=== PATIENT | female | born 1935 | race Caucasian/White ===

== ENCOUNTER 2019-12-03 13:07 | Inpatient (IN) | payer MEDICARE, BC ==
[2019-12-03 13:18] LABS: Glucose,Whole Blood 424 mg/dL (75-99)
[2019-12-03] MEDS ORDERED: INSULIN ASPART (NovoLOG) 100 UNIT/ML VIAL SQ ONE (14:03)
[2019-12-03] MEDS ORDERED: SODIUM CHLORIDE 0.9% 1,000 ML IV ONE ×2 (14:06→15:20)
[2019-12-03 14:28] LABS: Glucose,Whole Blood 417 mg/dL (75-99)
--- NOTE | 2019-12-03 14:37 | ED ---
General Adult HPI - General Chief complaint: Recheck/Abnormal Lab/Rx Stated complaint: high blood sugar Time Seen by Provider: 12/03/19 13:10 Source: patient, RN notes reviewed, old records reviewed Mode of arrival: ambulatory Limitations: no limitations - History of Present Illness Initial comments: This is an 84-year-old female who presents to the emergency department complaining of being fatigued and tired for the last few days she was just recently diagnosed with urinary tract infection but came to the hospital today because his sugars been high over the last 3 days. That she does not test her sugars. Patient states she had some lower abdominal pain when she was diagnosed with the urinary tract infection but she feels much better after she's been on the antibiotic. - Related Data Home Medications Medication Instructions Recorded Confirmed Aspirin 81 mg PO HS 12/17/13 04/15/17 Atorvastatin [Lipitor] 20 mg PO HS 12/17/13 04/15/17 Benazepril HCl [Lotensin] 20 mg PO HS 12/17/13 04/15/17 Pantoprazole Sodium [Protonix] 40 mg PO HS 12/17/13 04/15/17 Pioglitazone HCl [Actos] 30 mg PO HS 12/17/13 04/15/17 Verapamil HCl [Calan] 120 mg PO HS 12/17/13 04/15/17 sitaGLIPtin PHOS/metFORMIN HCL 1 tab PO HS 12/17/13 04/15/17 [Janumet Xr 100-1,000 mg Tablet] Ergocalciferol (Vitamin D2) 50,000 unit PO Q7D 04/15/17 04/15/17 [Vitamin D2] Glimepiride [Amaryl] 2 mg PO BID 04/15/17 04/15/17 Allergies Allergy/AdvReac Type Severity Reaction Status Date / Time No Known Allergies Allergy Verified 12/03/19 13:08 Review of Systems ROS Statement: Those systems with pertinent positive or pertinent negative responses have been documented in the HPI. ROS Other: All systems not noted in ROS Statement are negative. Past Medical History Past Medical History: Diabetes Mellitus, GERD/Reflux, Hyperlipidemia, Hypertension, Osteoarthritis (OA) Additional Past Medical History / Comment(s): HIATAL HERNIA. History of Any Multi-Drug Resistant Organisms: None Reported Past Surgical History: Cholecystectomy, Hysterectomy, Orthopedic Surgery Additional Past Surgical History / Comment(s): YENIFER CATARACTS EXTRACTED; ARTHROSCOPY RT KNEE X2 Past Anesthesia/Blood Transfusion Reactions: No Reported Reaction Past Psychological History: No Psychological Hx Reported Smoking Status: Never smoker Past Alcohol Use History: None Reported Past Drug Use History: None Reported - Past Family History Sister(s) Family Medical History: Cancer General Exam - General Exam Comments Initial Comments: GENERAL: Patient is well-developed and well-nourished. Patient is nontoxic and well- hydrated and is in mild distress. ENT: Neck is soft and supple. No significant lymphadenopathy is noted. Oropharynx is clear. Moist mucous membranes. Neck has full range of motion without eliciting any pain. EYES: The sclera were anicteric and conjunctiva were pink and moist. Extraocular movements were intact and pupils were equal round and reactive to light. Eyelids were unremarkable. PULMONARY: Unlabored respirations. Good breath sounds bilaterally. No audible rales rhonchi or wheezing was noted. CARDIOVASCULAR: There is a regular rate and rhythm without any murmurs gallops or rubs. ABDOMEN: Soft and nontender with normal bowel sounds. SKIN: Skin is clear with no lesions or rashes and otherwise unremarkable. NEUROLOGIC: Patient is alert and oriented x3. Cranial nerves II through XII are grossly intact. Motor and sensory are also intact. Normal speech, volume and content. Symmetrical smile. MUSCULOSKELETAL: Normal extremities with adequate strength and full range of motion. No lower extremity swelling or edema. No calf tenderness. LYMPHATICS: No significant lymphadenopathy is noted PSYCHIATRIC: Normal psychiatric evaluation. Limitations: no limitations Course Vital Signs 12/03/19 13:08 Temperature 97.9 F Pulse Rate 104 H Respiratory 20 Rate Blood Pressure 106/69 O2 Sat by Pulse 98 Oximetry Medical Decision Making - Medical Decision Making EKG shows junctional rhythm at 94 bpm QRS is 84 QT interval 374 QTC is 467 Patient had a urinary tract infection I treated her with Rocephin. I started the patient on a NovoLog sliding scale and I also gave 8 units of NovoLog in the emergency department. Patient has renal insufficiency so I hydrated the patient up as well I spoke with Dr. Rebolledo. I wrote admitting orders. - Lab Data Result diagrams: 12/03/19 14:21 12/03/19 14:21 Lab Results 12/03/19 12/03/19 12/03/19 Range/Units 13:16 14:21 14:21 WBC 14.6 H (3.8-10.6) k/uL RBC 4.07 (3.80-5.40) m/uL Hgb 11.0 L (11.4-16.0) gm/dL Hct 35.7 (34.0-46.0) % MCV 87.9 (80.0-100.0) fL MCH 27.0 (25.0-35.0) pg MCHC 30.7 L (31.0-37.0) g/dL RDW 14.8 (11.5-15.5) % Plt Count 371 (150-450) k/uL Neutrophils % 81 % Lymphocytes % 10 % Monocytes % 5 % Eosinophils % 3 % Basophils % 0 % Neutrophils # 11.8 H (1.3-7.7) k/uL Lymphocytes # 1.4 (1.0-4.8) k/uL Monocytes # 0.7 (0-1.0) k/uL Eosinophils # 0.5 (0-0.7) k/uL Basophils # 0.0 (0-0.2) k/uL Hypochromasia Slight Sodium (137-145) mmol/L Potassium (3.5-5.1) mmol/L Chloride (98-107) mmol/L Carbon Dioxide (22-30) mmol/L Anion Gap mmol/L BUN (7-17) mg/dL Creatinine (0.52-1.04) mg/dL Est GFR (CKD-EPI)AfAm (>60 ml/min/1.73 sqM) Est GFR (CKD-EPI)NonAf (>60 ml/min/1.73 sqM) Glucose (74-99) mg/dL POC Glucose (mg/dL) 424 H (75-99) mg/dL POC Glu Top Collar Maker ID Minerva Friend Calcium (8.4-10.2) mg/dL Total Bilirubin (0.2-1.3) mg/dL AST (14-36) U/L ALT (4-34) U/L Alkaline Phosphatase (38-126) U/L Total Protein (6.3-8.2) g/dL Albumin (3.5-5.0) g/dL Urine Color Brown Urine Appearance Cloudy H (Clear) Urine pH 5.5 (5.0-8.0) Ur Specific [place] 1.015 (1.001-1.035) Urine Protein 1+ H (Negative) Urine Glucose (UA) 4+ H (Negative) Urine Ketones Negative (Negative) Urine Blood Moderate H (Negative) Urine Nitrite Positive H (Negative) Urine Bilirubin Negative (Negative) Urine Urobilinogen 2.0 (<2.0) mg/dL Ur Leukocyte Esterase Large H (Negative) Urine RBC 73 H (0-5) /hpf Urine WBC >182 H (0-5) /hpf Urine WBC Clumps Many H (None) /hpf Ur Squamous Epith Cells 2 (0-4) /hpf Urine Bacteria Few H (None) /hpf Hyaline Casts 24 H (0-2) /lpf Urine Mucus Rare H (None) /hpf Acetone, Qual (Negative) 12/03/19 12/03/19 Range/Units 14:21 14:26 WBC (3.8-10.6) k/uL RBC (3.80-5.40) m/uL Hgb (11.4-16.0) gm/dL Hct (34.0-46.0) % MCV (80.0-100.0) fL MCH (25.0-35.0) pg MCHC (31.0-37.0) g/dL RDW (11.5-15.5) % Plt Count (150-450) k/uL Neutrophils % % Lymphocytes % % Monocytes % % Eosinophils % % Basophils % % Neutrophils # (1.3-7.7) k/uL Lymphocytes # (1.0-4.8) k/uL Monocytes # (0-1.0) k/uL Eosinophils # (0-0.7) k/uL Basophils # (0-0.2) k/uL Hypochromasia Sodium 129 L (137-145) mmol/L Potassium 4.6 (3.5-5.1) mmol/L Chloride 97 L (98-107) mmol/L Carbon Dioxide 16 L (22-30) mmol/L Anion Gap 16 mmol/L BUN 35 H (7-17) mg/dL Creatinine 1.72 H (0.52-1.04) mg/dL Est GFR (CKD-EPI)AfAm 32 (>60 ml/min/1.73 sqM) Est GFR (CKD-EPI)NonAf 27 (>60 ml/min/1.73 sqM) Glucose 388 H (74-99) mg/dL POC Glucose (mg/dL) 417 H (75-99) mg/dL POC Glu Top Collar Maker ID Minerva Friend Calcium 9.1 (8.4-10.2) mg/dL Total Bilirubin 0.6 (0.2-1.3) mg/dL AST 20 (14-36) U/L ALT 10 (4-34) U/L Alkaline Phosphatase 106 (38-126) U/L Total Protein 7.3 (6.3-8.2) g/dL Albumin 3.9 (3.5-5.0) g/dL Urine Color Urine Appearance (Clear) Urine pH (5.0-8.0) Ur Specific [place] (1.001-1.035) Urine Protein (Negative) Urine Glucose (UA) (Negative) Urine Ketones (Negative) Urine Blood (Negative) Urine Nitrite (Negative) Urine Bilirubin (Negative) Urine Urobilinogen (<2.0) mg/dL Ur Leukocyte Esterase (Negative) Urine RBC (0-5) /hpf Urine WBC (0-5) /hpf Urine WBC Clumps (None) /hpf Ur Squamous Epith Cells (0-4) /hpf Urine Bacteria (None) /hpf Hyaline Casts (0-2) /lpf Urine Mucus (None) /hpf Acetone, Qual Negative (Negative) Disposition Clinical Impression: Urinary tract infection, Renal insufficiency, Failure of outpatient treatment Disposition: ADMITTED IP TO THIS HOSP Referrals: Glory Rebolledo DO [Primary Care Provider] - 1-2 days Time of Disposition: 15:12
[2019-12-03 14:44] LABS: Basophils % (A) 0 %; Eosinophils # (A) 0.5 k/uL (0-0.7); Eosinophils % (A) 3 %; HCT 35.7 % (34.0-46.0); Hypochromasia Slight; Lymphocytes # (A) 1.4 k/uL (1.0-4.8); Lymphocytes % (A) 10 %; MCHC 30.7 g/dL (31.0-37.0); MCV 87.9 fL (80.0-100.0); Mean Platelet Volume 7.4; Monocytes # (A) 0.7 k/uL (0-1.0); Monocytes % (A) 5 %; Neutrophils # (A) 11.8 k/uL (1.3-7.7); Neutrophils % (A) 81 %; Platelet Count 371 k/uL (150-450); RBC 4.07 m/uL (3.80-5.40); RDW 14.8 % (11.5-15.5); WBC 14.6 k/uL (3.8-10.6)
[2019-12-03 14:53] LABS: Appearance,Urine Cloudy (Clear); Bacteria,Urine Few /hpf; Bilirubin,Urine Negative (Negative); Blood,Urine Moderate (Negative); Color,Urine Brown; Glucose,Urine (UA) 4+ (Negative); Hyaline Casts,Urine 24 /lpf (0-2); Ketones,Urine Negative (Negative); Leukocyte Esterase,Urine Large (Negative); Mucus,Urine Rare /hpf; Nitrite,Urine Positive (Negative); PH, Urine 5.5 (5.0-8.0); Protein,Urine 1+ (Negative); RBC,Urine 73 /hpf (0-5); Specific Gravity,Urine 1.015 (1.001-1.035); Squamous Epithelial Cell,Urine 2 /hpf (0-4); WBC,Urine >182 /hpf (0-5)
[2019-12-03 14:57] LABS: ALT 10 U/L (4-34); AST 20 U/L (14-36); African American GFR (CKD) 32 (>60 ml/min/1.73 sqM); Albumin 3.9 g/dL (3.5-5.0); Alkaline Phosphatase 106 U/L (38-126); Anion Gap 16 mmol/L; Blood Urea Nitrogen 35 mg/dL (7-17); Calcium 9.1 mg/dL (8.4-10.2); Carbon Dioxide 16 mmol/L (22-30); Chloride 97 mmol/L (98-107); Glucose 388 mg/dL (74-99); Non-African American GFR(CKD) 27 (>60 ml/min/1.73 sqM); Potassium 4.6 mmol/L (3.5-5.1); Sodium 129 mmol/L (137-145); Total Bilirubin 0.6 mg/dL (0.2-1.3); Total Protein 7.3 g/dL (6.3-8.2)
[2019-12-03] MEDS ORDERED: cefTRIAXone IN SWFI 1,000 MG/10 ML SYRINGE IVP STA ×2 (15:08→15:12)
[2019-12-03 15:58] LABS: Glucose,Whole Blood 288 mg/dL (75-99)
[2019-12-03] MEDS ORDERED: LORATADINE 10 MG TAB PO PRN (17:20)
[2019-12-03 17:28] LABS: Glucose,Whole Blood 237 mg/dL (75-99)
[2019-12-03] MEDS: INSULIN ASPART (NovoLOG) 100 UNIT/ML VIAL SQ SCH ×2 (17:30→20:39)
[2019-12-03 20:34] LABS: Glucose,Whole Blood 266 mg/dL (75-99)
[2019-12-03] MEDS: ATORVASTATIN 20 MG TAB PO SCH (20:39)
[2019-12-03] MEDS: AMITRIPTYLINE HCL 10 MG TAB PO SCH (20:39)
[2019-12-04 06:32] LABS: Glucose,Whole Blood 125 mg/dL (75-99)
[2019-12-04] MEDS: INSULIN ASPART (NovoLOG) 100 UNIT/ML VIAL SQ SCH ×4 (06:33→20:52)
[2019-12-04] MEDS: LISINOPRIL 20 MG TAB PO SCH (08:46)
[2019-12-04] MEDS: ESCITALOPRAM 5 MG TAB PO SCH (08:46)
[2019-12-04] MEDS: VERAPAMIL SR 120 MG TABLET.ER PO SCH (08:47)
[2019-12-04] MEDS: ASPIRIN 81 MG PO SCH (08:52)
[2019-12-04] MEDS ORDERED: VERAPAMIL SR 120 MG TABLET.ER PO SCH (11:45)
[2019-12-04 11:57] LABS: Hemoglobin A1C 11.6 % (4.0-6.0)
[2019-12-04 12:08] LABS: Glucose,Whole Blood 293 mg/dL (75-99)
[2019-12-04 13:45] VITALS: BMI 28.9
[2019-12-04 17:03] LABS: Glucose,Whole Blood 269 mg/dL (75-99)
[2019-12-04 20:45] LABS: Glucose,Whole Blood 216 mg/dL (75-99)
[2019-12-04] MEDS: AMITRIPTYLINE HCL 10 MG TAB PO SCH (20:51)
[2019-12-04] MEDS: ATORVASTATIN 20 MG TAB PO SCH (20:51)
[2019-12-05 00:46] VITALS: BP 163/80
[2019-12-05 06:39] LABS: Glucose,Whole Blood 171 mg/dL (75-99)
[2019-12-05] MEDS: INSULIN ASPART (NovoLOG) 100 UNIT/ML VIAL SQ SCH (06:46)
[2019-12-05] MEDS ORDERED: INSULIN DETEMIR (LEVEMIR) 100 UNIT/ML SYR SQ SCH (08:40)
--- NOTE | 2019-12-05 08:43 | P.HPIM ---
History of Present Illness H&P Date: 12/04/19 Chief Complaint: UTI Mckayla Rogers is an 84 yo F with PMH of HTN, T2DM, depression who presented to the ED complaining of worsening UTI symptoms over the past few days. She states she initially went to her PCP office and was started on cipro. She states her symptoms persisted including urinary frequency, dysuria and lower abdominal cramping despite the antibiotics. She has been checking her sugar at home and notes it has been creeping up to the 300s so she came to the ED. On presentation, vitals stable, WBC 14k, Cr 1.7, glucose 417 and A1c 11.6. UA with positive LE and nitrite. Review of Systems All systems: negative Constitutional: Reports malaise, Denies chills, Denies fever Eyes: denies blurred vision, denies pain Ears, nose, mouth and throat: Denies headache, Denies sore throat Cardiovascular: Denies chest pain, Denies shortness of breath Respiratory: Denies cough Gastrointestinal: Denies abdominal pain, Denies diarrhea, Denies nausea, Denies vomiting Genitourinary: Reports dysuria, Reports urgency, Denies hematuria Musculoskeletal: Denies myalgias Integumentary: Denies pruritus, Denies rash Neurological: Denies numbness, Denies weakness Psychiatric: Denies anxiety, Denies depression Endocrine: Denies fatigue, Denies weight change Past Medical History Past Medical History: Diabetes Mellitus, GERD/Reflux, Hyperlipidemia, Hypertension, Osteoarthritis (OA) Additional Past Medical History / Comment(s): HIATAL HERNIA. History of Any Multi-Drug Resistant Organisms: None Reported Past Surgical History: Cholecystectomy, Hysterectomy, Orthopedic Surgery Additional Past Surgical History / Comment(s): YENIFER CATARACTS EXTRACTED; ARTHROSCOPY RT KNEE X1 Past Anesthesia/Blood Transfusion Reactions: No Reported Reaction Past Psychological History: No Psychological Hx Reported Smoking Status: Never smoker Past Alcohol Use History: None Reported Past Drug Use History: None Reported - Past Family History Sister(s) Family Medical History: Cancer Medications and Allergies Home Medications Medication Instructions Recorded Confirmed Type Aspirin 81 mg PO DAILY 12/17/13 12/03/19 History Atorvastatin [Lipitor] 20 mg PO DAILY 12/17/13 12/03/19 History Benazepril HCl [Lotensin] 20 mg PO DAILY 12/17/13 12/03/19 History Pioglitazone HCl [Actos] 30 mg PO DAILY 12/17/13 12/03/19 History Ergocalciferol (Vitamin D2) 50,000 unit PO MO 04/15/17 12/03/19 History [Vitamin D2] Glimepiride [Amaryl] 2 mg PO BID 04/15/17 12/03/19 History Amitriptyline HCl [Elavil] 10 mg PO HS 12/03/19 12/03/19 History Cetirizine HCl [Zyrtec] 10 mg PO DAILY PRN 12/03/19 12/03/19 History Ciprofloxacin HCl [Cipro] 250 mg PO BID 12/03/19 12/03/19 History Dulaglutide [Trulicity] 0.75 mg INJ SA 12/03/19 12/03/19 History Escitalopram [Lexapro] 5 mg PO DAILY 12/03/19 12/03/19 History Multivitamin [Multivitamins Adult 1 tab PO DAILY 12/03/19 12/03/19 History Gummies] Ondansetron HCl [Zofran] 8 mg PO Q8H PRN 12/03/19 12/03/19 History Verapamil HCl [Verapamil ER] 120 mg PO DAILY 12/03/19 12/03/19 History metFORMIN HCL [metFORMIN HCL ER] 750 mg PO BID 12/03/19 12/03/19 History rOPINIRole HCL [Requip] 0.5 mg PO HS 12/03/19 12/03/19 History Allergies Allergy/AdvReac Type Severity Reaction Status Date / Time No Known Allergies Allergy Verified 12/03/19 16:04 Physical Exam Vitals: Vital Signs Temp Pulse Resp BP Pulse Ox 12/04/19 19:55 98.6 F 99 18 173/80 96 12/04/19 16:11 98.3 F 94 18 170/73 98 12/04/19 08:53 98.0 F 90 18 166/78 97 12/04/19 00:00 98.9 F 86 17 132/72 96 Intake and Output 12/04/19 12/04/19 12/05/19 14:59 22:59 06:59 Intake Total 100 Balance 100 Intake: Oral 100 Other: Voiding Method Toilet # Voids 3 1 Weight 69.4 kg General: well nourished, well developed, NAD. Vitals reviewed Eyes: PERRL, EOMI, conjunctiva normal HENT: normocephalic, mucus membranes moist Neck: supple, no JVD Lungs: normal respiratory effort, no wheezes or rales CV: Regular rate and rhythm, no murmur. Peripheral pulses 2+ Abdomen: soft, nondistended, no organomegaly Lymph: no cervical or axillary LAD Skin: warm and dry. Neuro: A&Ox3, normal mood and affect Results CBC & Chem 7: 12/03/19 14:21 12/03/19 14:21 Labs: Abnormal Lab Results - Last 24 Hours (Table) 12/03/19 12/04/19 12/04/19 Range/Units 14:21 06:31 12:06 POC Glucose (mg/dL) 125 H 293 H (75-99) mg/dL Hemoglobin A1c 11.6 H (4.0-6.0) % 12/04/19 12/04/19 Range/Units 17:00 20:43 POC Glucose (mg/dL) 269 H 216 H (75-99) mg/dL Hemoglobin A1c (4.0-6.0) % Microbiology - Last 24 Hours (Table) 12/03/19 14:21 Urine Culture - Final Urine,Voided 12/03/19 15:31 Blood Culture - Preliminary Blood No Growth after 24 hours Thrombosis Risk Factor Assmnt - Choose All That Apply Any of the Below Risk Factors Present?: Yes Each Factor Represents 1 point: Obesity (BMI >25) Other Risk Factors: Yes Each Risk Factor Represents 3 Points: Family history of DVT/PE Other congenital or acquired thrombophilia - If yes, enter type in comment: No Thrombosis Risk Factor Assessment Total Risk Factor Score: 4 Thrombosis Risk Factor Assessment Level: Moderate Risk Assessment and Plan (1) Complicated UTI (urinary tract infection) Current Visit: Yes Status: Acute Code(s): N39.0 - URINARY TRACT INFECTION, SITE NOT SPECIFIED SNOMED Code(s): 66557052 (2) Urinary tract infection Current Visit: Yes Status: Acute Code(s): N39.0 - URINARY TRACT INFECTION, SITE NOT SPECIFIED SNOMED Code(s): 71874688 (3) Anxiety Current Visit: No Status: Acute Code(s): F41.9 - ANXIETY DISORDER, UNSPECIFIED SNOMED Code(s): 41829458 (4) Diabetes mellitus Current Visit: No Status: Chronic Code(s): E11.9 - TYPE 2 DIABETES MELLITUS WITHOUT COMPLICATIONS SNOMED Code(s): 16254035 (5) Hyperlipemia Current Visit: No Status: Chronic Code(s): E78.5 - HYPERLIPIDEMIA, UNSPECIFIED SNOMED Code(s): 56218137 (6) Hypertension Current Visit: No Status: Chronic Code(s): I10 - ESSENTIAL (PRIMARY) HYPERTENSION SNOMED Code(s): 65993188 Plan: 1. Complicated UTI, failed outpatient treatment with cipro. Start on rocephin, follow cultures 2. Uncontrolled T2DM. Start on levemir, accucheck, sliding scale 3. HTN. Continue lisinopril and verapamil 4. HLD. continue lipitor
[2019-12-05] MEDS: LISINOPRIL 20 MG TAB PO SCH (09:26)
[2019-12-05] MEDS: ESCITALOPRAM 5 MG TAB PO SCH (09:26)
[2019-12-05] MEDS: ASPIRIN 81 MG PO SCH (09:26)
[2019-12-05] MEDS: VERAPAMIL SR 120 MG TABLET.ER PO SCH (09:27)
[2019-12-05 09:28] LABS: Basophils % (A) 0 %; Eosinophils # (A) 0.4 k/uL (0-0.7); Eosinophils % (A) 5 %; Hypochromasia Slight; Lymphocytes # (A) 1.3 k/uL (1.0-4.8); Lymphocytes % (A) 17 %; MCH 26.3 pg (25.0-35.0); MCHC 30.3 g/dL (31.0-37.0); Mean Platelet Volume 7.8; Monocytes # (A) 0.4 k/uL (0-1.0); Monocytes % (A) 6 %; Neutrophils # (A) 5.5 k/uL (1.3-7.7); Neutrophils % (A) 71 %; Platelet Count 386 k/uL (150-450); RDW 14.9 % (11.5-15.5); WBC 7.7 k/uL (3.8-10.6)
[2019-12-05 09:30] VITALS: PULSE 88; RESP 18; TEMP 98
[2019-12-05 09:44] LABS: Calcium 8.7 mg/dL (8.4-10.2); Potassium 4.4 mmol/L (3.5-5.1)
--- NOTE | 2019-12-05 16:08 | P.DS ---
Providers Date of admission: 12/03/19 15:20 Expected date of discharge: 12/05/19 Attending physician: Dev Rebolledo MD Primary care physician: Glory Rebolledo [facility] Course: Final Diagnoses: (1) Complicated UTI (urinary tract infection) Current Visit: Yes Status: Acute Code(s): N39.0 - URINARY TRACT INFECTION, SITE NOT SPECIFIED SNOMED Code(s): 57461872 (2) Urinary tract infection Current Visit: Yes Status: Acute Code(s): N39.0 - URINARY TRACT INFECTION, SITE NOT SPECIFIED SNOMED Code(s): 29543813 (3) Anxiety Current Visit: No Status: Acute Code(s): F41.9 - ANXIETY DISORDER, UNSPECIFIED SNOMED Code(s): 93051250 (4) Diabetes mellitus II, uncontrolled, hyperglycemia Current Visit: No Status: Chronic Code(s): E11.9 - TYPE 2 DIABETES MELLITUS WITHOUT COMPLICATIONS SNOMED Code(s): 20324098 (5) Hyperlipemia Current Visit: No Status: Chronic Code(s): E78.5 - HYPERLIPIDEMIA, UNSPECIFIED SNOMED Code(s): 98750554 (6) Hypertension Current Visit: No Status: Chronic Code(s): I10 - ESSENTIAL (PRIMARY) HYPERTENSION SNOMED Code(s): 71606296 Hospital course:Mckayla Rogers is an 84 yo F with PMH of HTN, T2DM, depression who presented to the ED complaining of worsening UTI symptoms over the past few days. She states she initially went to her PCP office and was started on cipro. She states her symptoms persisted including urinary frequency, dysuria and lower abdominal cramping despite the antibiotics. She has been checking her sugar at home and notes it has been creeping up to the 300s so she came to the ED. On presentation, vitals stable, WBC 14k, Cr 1.7, glucose 417 and A1c 11.6. UA with positive LE and nitrite. Maintained on Levemir and NovoLog and IV antibiotics with significant clinical improvement. Patient is being discharged home in a stable condition with guarded prognosis. Patient will be discharged on Lantus insulin, will arrange for CGM in clinic. The impression and plan of care has been dictated as directed. : I performed a history and examination of this patient, discussed the same with the dictator. I agree with the dictator's note ,documented as a scribe. Any additional findings or plans will be noted. Patient Condition at Discharge: Stable Plan - Discharge Summary Discharge Rx Participant: No New Discharge Prescriptions: New Insulin Glargine,Hum.rec.anlog [Lantus Solostar] 20 unit SQ DAILY #1 pen Amoxic-Pot Clav 875-125Mg [Augmentin 875-125] 1 tab PO Q12HR 5 Days #10 tab Continue Aspirin 81 mg PO DAILY Atorvastatin [Lipitor] 20 mg PO DAILY Benazepril HCl [Lotensin] 20 mg PO DAILY Ergocalciferol (Vitamin D2) [Vitamin D2] 50,000 unit PO MO Cetirizine HCl [Zyrtec] 10 mg PO DAILY PRN PRN Reason: seasonal allergies Amitriptyline HCl [Elavil] 10 mg PO HS Escitalopram [Lexapro] 5 mg PO DAILY metFORMIN HCL [metFORMIN HCL ER] 750 mg PO BID Multivitamin [Multivitamins Adult Gummies] 1 tab PO DAILY Ondansetron HCl [Zofran] 8 mg PO Q8H PRN PRN Reason: Nausea And Vomiting rOPINIRole HCL [Requip] 0.5 mg PO HS Verapamil HCl [Verapamil ER] 120 mg PO DAILY Discontinued Pioglitazone HCl [Actos] 30 mg PO DAILY Glimepiride [Amaryl] 2 mg PO BID Ciprofloxacin HCl [Cipro] 250 mg PO BID Dulaglutide [Trulicity] 0.75 mg INJ SA Discharge Medication List Aspirin 81 mg PO DAILY 12/17/13 [History] Atorvastatin [Lipitor] 20 mg PO DAILY 12/17/13 [History] Benazepril HCl [Lotensin] 20 mg PO DAILY 12/17/13 [History] Ergocalciferol (Vitamin D2) [Vitamin D2] 50,000 unit PO MO 04/15/17 [History] Amitriptyline HCl [Elavil] 10 mg PO HS 12/03/19 [History] Cetirizine HCl [Zyrtec] 10 mg PO DAILY PRN 12/03/19 [History] Escitalopram [Lexapro] 5 mg PO DAILY 12/03/19 [History] Multivitamin [Multivitamins Adult Gummies] 1 tab PO DAILY 12/03/19 [History] Ondansetron HCl [Zofran] 8 mg PO Q8H PRN 12/03/19 [History] Verapamil HCl [Verapamil ER] 120 mg PO DAILY 12/03/19 [History] metFORMIN HCL [metFORMIN HCL ER] 750 mg PO BID 12/03/19 [History] rOPINIRole HCL [Requip] 0.5 mg PO HS 12/03/19 [History] Amoxic-Pot Clav 875-125Mg [Augmentin 875-125] 1 tab PO Q12HR 5 Days #10 tab 12/05/19 [Rx] Insulin Glargine,Hum.rec.anlog [Lantus Solostar] 20 unit SQ DAILY #1 pen 12/05/19 [Rx] Follow up Appointment(s)/Referral(s): Dev Rebolledo MD [STAFF PHYSICIAN] - 3 Days Ambulatory/Diagnostic Orders: Complete Blood Count w/diff [LAB.AMB] Time Frame: 3 Days, Location: None Selected Activity/Diet/Wound Care/Special Instructions: Accu-Cheks 3 times a day before meals, maintain log intake to follow-up visit with PCP for further recommendations Diet: Consistent carb Fluids are always encouraged. continue antibiotic as directed starting tomorrow. have lab work done at the facility of your choosing in 3 days. follow up with family physician in 3 days. Call physician or return to ER with questions comments concerns worsening returning symptoms, fever 101.1 or higher, not tolerating diet or fluids, pain not controlled by Tylenol or Motrin. Discharge Disposition: HOME SELF-CARE
== END 2019-12-05 11:40 | disposition home or self-care (01) | DRG 690 ==
LOC: EC 13:07 → 6PED 15:20
PROVIDERS: ADMIT Family Medicine; ATTEND Family Medicine
DX: N39.0 Urinary tract infection, site not specified (principal); E11.65 Type 2 diabetes mellitus with hyperglycemia; E78.5 Hyperlipidemia, unspecified; F41.9 Anxiety disorder, unspecified; I10 Essential (primary) hypertension; M19.90 Unspecified osteoarthritis, unspecified site; K21.9 Gastro-esophageal reflux disease without esophagitis; Z79.82 Long term (current) use of aspirin; Z11.59 Encounter for screening for other viral diseases; Z79.84 Long term (current) use of oral hypoglycemic drugs; Z79.899 Other long term (current) drug therapy; Z90.710 Acquired absence of both cervix and uterus; Z90.49 Acquired absence of other specified parts of digestive tract; Z98.42 Cataract extraction status, left eye; Z98.41 Cataract extraction status, right eye; Z80.9 Family history of malignant neoplasm, unspecified
CPT/HCPCS: 36415; 80048; 80053; 81001; 82009; 83036; 83605; 85025; 87040; 87086; 93005; 96361; 96374; 99285

== ENCOUNTER 2022-11-08 15:42 | Inpatient (IN) | payer MEDICARE, BC ==
--- NOTE | 2022-11-08 15:45 | ED ---
General Adult HPI - General Source: patient, RN notes reviewed Mode of arrival: ambulatory Limitations: no limitations <Blake Zepeda - Last Filed: 11/08/22 15:44> <Ivonne Barron - Last Filed: 11/08/22 23:21> - General Stated complaint: abd and back pain Time Seen by Provider: 11/08/22 15:44 - History of Present Illness Initial comments: 87-year-old female presents emergency Department from PCPs office for evaluation of left flank pain. Patient sent over for concerns for possible kidney stone. Patient states pain started this morning. states the pain is quite severe at times. (Blake Zepeda) Patient is an 87-year-old female who presents to the emergency department for left-sided pain. It started in the middle of the night last night. Patient had intermittent episodes of intense pain. States she felt pressure on her bladder without burning. She did have some blood in her urine. She feels nauseous no vomiting. No fever or chills. She went to her primary care provider's office for rule out kidney stone. She states she had a KUB x-ray which was negative. She was given a "pain shot" states she is asymptomatic currently. (Ivonne Barron) - Related Data Home Medications Medication Instructions Recorded Confirmed Amitriptyline HCl [Elavil] 10 mg PO HS PRN 12/03/19 11/08/22 Verapamil HCl [Verapamil ER] 120 mg PO DAILY 12/03/19 11/08/22 Apixaban [Eliquis] 5 mg PO BID 11/08/22 11/08/22 Atorvastatin [Lipitor] 40 mg PO HS 11/08/22 11/08/22 Dulaglutide [Trulicity] 1.5 mg SQ MO 11/08/22 11/08/22 Pioglitazone [Actos] 15 mg PO DAILY 11/08/22 11/08/22 Venlafaxine HCl ER [Effexor Xr] 37.5 mg PO DAILY 11/08/22 11/08/22 metFORMIN HCL ER [Glucophage XR] 500 mg PO BID 11/08/22 11/08/22 Allergies Allergy/AdvReac Type Severity Reaction Status Date / Time No Known Allergies Allergy Verified 11/08/22 21:14 Review of Systems ROS Other: All systems not noted in ROS Statement are negative. <Blake Zepeda - Last Filed: 11/08/22 15:44> ROS Other: All systems not noted in ROS Statement are negative. <Ivonne Barron - Last Filed: 11/08/22 23:21> ROS Statement: Those systems with pertinent positive or pertinent negative responses have been documented in the HPI. Past Medical History Past Medical History: Diabetes Mellitus, GERD/Reflux, Hyperlipidemia, Hypertension, Osteoarthritis (OA) Additional Past Medical History / Comment(s): HIATAL HERNIA. History of Any Multi-Drug Resistant Organisms: None Reported Past Surgical History: Cholecystectomy, Hysterectomy, Orthopedic Surgery Additional Past Surgical History / Comment(s): YENIFER CATARACTS EXTRACTED; ARTHROSCOPY RT KNEE X1 Past Anesthesia/Blood Transfusion Reactions: No Reported Reaction Past Psychological History: No Psychological Hx Reported Past Alcohol Use History: None Reported Past Drug Use History: None Reported - Past Family History Sister(s) Family Medical History: Cancer <Blake Zepeda - Last Filed: 11/08/22 15:44> General Exam <Blake Zepeda - Last Filed: 11/08/22 15:44> General appearance: alert, in no apparent distress Eye exam: Present: normal appearance, PERRL, EOMI. Absent: scleral icterus, conjunctival injection, periorbital swelling Respiratory exam: Present: normal lung sounds bilaterally. Absent: respiratory distress, wheezes, rales, rhonchi, stridor Cardiovascular Exam: Present: regular rate, normal rhythm, normal heart sounds. Absent: systolic murmur, diastolic murmur, rubs, gallop, clicks GI/Abdominal exam: Present: soft, normal bowel sounds. Absent: distended, tenderness, guarding, rebound, rigid Back exam: Present: normal inspection. Absent: CVA tenderness (R), CVA tenderness (L), paraspinal tenderness, vertebral tenderness Neurological exam: Present: alert, oriented X3, CN II-XII intact Psychiatric exam: Present: normal affect, normal mood Skin exam: Present: warm, dry, intact, normal color. Absent: rash <BeatriceIvonne - Last Filed: 11/08/22 23:21> - General Exam Comments Initial Comments: Visual Physical Exam Vital signs reviewed General: Well-appearing, nontoxic, no acute distress. Head: Normocephalic, atraumatic Eyes: PERRLA, EOMI ENT: Airway patent Chest: Nonlabored breathing Skin: No visual rash, normal skin tone Neuro: Alert and oriented 3 Musculoskeletal: No gross abnormalities (Blake Zepeda) Course Vital Signs 11/08/22 11/08/22 17:05 20:43 Temperature 98.0 F Pulse Rate 92 82 Respiratory 20 16 Rate Blood Pressure 117/55 149/72 O2 Sat by Pulse 100 99 Oximetry Medical Decision Making - Lab Data Result diagrams: 11/08/22 18:34 11/08/22 18:34 <Ivonne Barron - Last Filed: 11/08/22 23:21> - Medical Decision Making Was pt. sent in by a medical professional or institution (, PA, TOUR OPERATOR, urgent care, hospital, or [facility]...) When possible be specific @ -Primary care provider prior to arrival Did you speak to anyone other than the patient for history (EMS, parent, family, police, friend...)? What history was obtained from this source @ -No Did you review nursing and triage notes (agree or disagree)? Why? @ -I reviewed and agree with nursing and triage notes Were old charts reviewed (outside hosp., previous admission, EMS record, old EKG, old radiological studies, urgent care reports/EKG's, chcf records)? Report findings @ -No old charts were reviewed Differential Diagnosis (chest pain, altered mental status, abdominal pain women, abdominal pain men, vaginal bleeding, weakness, fever, dyspnea, syncope, headache, dizziness, GI bleed, back pain, seizure, CVA, palpatations, mental health)? @ -Differential Abdominal Pain Women: Appendicitis, Cholecystitis, diverticulosis, ischemic bowel, pancreatitis, hepatitis, UTI, gastroenteritis, AAA, incarcerated hernia, bowel obstruction, constipation, inflammatory bowel, hepatitis, peptic ulcer disease, splenic inf arction, perforated viscus, vulvitis, ovarian torsion, PID, kidney stone, placenta abruption, this is not meant to be an all-inclusive list EKG interpreted by me (3pts min.). @ -As above X-rays interpreted by me (1pt min.). @ -None done CT interpreted by me (1pt min.). @ -Yes, she did abdomen and pelvis shows perinephric stranding on the left kidney. Hydroureter remained present. No obstructing etiology identified U/S interpreted by me (1pt. min.). @ -None done What testing was considered but not performed or refused? (CT, X-rays, U/S, labs)? Why? @ -None What meds were considered but not given or refused? Why? @ -None Did you discuss the management of the patient with other professionals (professionals i.e. Dr., PA, TOUR OPERATOR, lab, RT, psych nurse, social media director, web content director, teacher, security flex utility officer, case management social worker)? Give summary @ -No Was smoking cessation discussed for >3mins.? @ -No Was critical care preformed (if so, how long)? @ -No Were there social determinants of health that impacted care today? How? (Homelessness, low income, unemployed, alcoholism, drug addiction, transportation, low edu. Level, literacy, decrease access to med. care, chcf, rehab)? @ -No Was there de-escalation of care discussed even if they declined (Discuss DNR or withdrawal of care, Hospice)? DNR status @ -No] What co-morbidities impacted this encounter? (DM, HTN, Smoking, COPD, CAD, Cancer, CVA, ARF, Chemo, Hep., AIDS, mental health diagnosis, sleep apnea, morbid obesity)? @ -[None] Was patient admitted / discharged? Hospital course, mention meds given and route, prescriptions, significant lab abnormalities, going to OR and other pertinent info. @ -Admitted. Patient has leukocytosis and DEBORAH. Urinalysis shows many bacteria with large leukocyte esterase and [address] of the abdomen and pelvis interpreted by myself/radiologist showing perinephric stranding. There is concern for pyelonephritis IV Levaquin given patient admitted to Dr. Rebolledo in stable condition. Undiagnosed new problem with uncertain prognosis? @ -[No] Drug Therapy requiring intensive monitoring for toxicity (Heparin, Nitro, Insulin, Cardizem)? @ -[No] Were any procedures done? @ -[No] Diagnosis/symptom? @ -Pyelonephritis Acute, or Chronic, or Acute on Chronic? @ Acute Uncomplicated (without systemic symptoms) or Complicated (systemic symptoms)? @ -Uncomplicated Side effects of treatment? @ -[No] Exacerbation, Progression, or Severe Exacerbation? @ -[No] Poses a threat to life or bodily function? How? (Chest pain, USA, CT, pneumonia, PE, COPD, DKA, ARF, appy, cholecystitis, CVA, Diverticulitis, Homicidal, Suicidal, threat to staff... and all critical care pts) @ -No Dr. De Souza is my attending (Ivonne Barron) - Lab Data Lab Results 11/08/22 11/08/22 11/08/22 Range/Units 17:08 18:34 18:34 WBC 14.9 H (3.8-10.6) k/uL RBC 3.96 (3.80-5.40) m/uL Hgb 11.5 (11.4-16.0) gm/dL Hct 35.9 (34.0-46.0) % MCV 90.6 (80.0-100.0) fL MCH 29.0 (25.0-35.0) pg MCHC 32.0 (31.0-37.0) g/dL RDW 14.6 (11.5-15.5) % Plt Count 294 (150-450) k/uL MPV 7.4 Neutrophils % 88 % Lymphocytes % 6 % Monocytes % 5 % Eosinophils % 0 % Basophils % 0 % Neutrophils # 13.2 H (1.3-7.7) k/uL Lymphocytes # 0.9 L (1.0-4.8) k/uL Monocytes # 0.7 (0-1.0) k/uL Eosinophils # 0.0 (0-0.7) k/uL Basophils # 0.0 (0-0.2) k/uL Sodium 134 L (137-145) mmol/L Potassium 5.4 H (3.5-5.1) mmol/L Chloride 100 (98-107) mmol/L Carbon Dioxide 21 L (22-30) mmol/L Anion Gap 13 mmol/L BUN 33 H (7-17) mg/dL Creatinine 1.64 H (0.52-1.04) mg/dL Est GFR (CKD-EPI)AfAm 33 (>60 ml/min/1.73 sqM) Est GFR (CKD-EPI)NonAf 28 (>60 ml/min/1.73 sqM) Glucose 218 H (74-99) mg/dL Calcium 9.5 (8.4-10.2) mg/dL Total Bilirubin 0.7 (0.2-1.3) mg/dL AST 23 (14-36) U/L ALT 17 (4-34) U/L Alkaline Phosphatase 63 (38-126) U/L Total Protein 7.1 (6.3-8.2) g/dL Albumin 4.4 (3.5-5.0) g/dL Lipase 199 (23-300) U/L Urine Color Yellow Urine Appearance Cloudy H (Clear) Urine pH 5.5 (5.0-8.0) Ur Specific [place] 1.020 (1.001-1.035) Urine Protein 2+ H (Negative) Urine Glucose (UA) Negative (Negative) Urine Ketones Negative (Negative) Urine Blood Large H (Negative) Urine Nitrite Negative (Negative) Urine Bilirubin Negative (Negative) Urine Urobilinogen <2.0 (<2.0) mg/dL Ur Leukocyte Esterase Large H (Negative) Urine RBC 73 H (0-5) /hpf Urine WBC 70 H (0-5) /hpf Ur Squamous Epith Cells 1 (0-4) /hpf Urine Bacteria Many H (None) /hpf Urine Mucus Rare H (None) /hpf Disposition <Blake Zepeda - Last Filed: 11/08/22 15:44> <Ivonne Barron - Last Filed: 11/08/22 23:21> Clinical Impression: Pyelonephritis Disposition: ADMITTED IP TO THIS HOSP Condition: Good Referrals: Glory Rebolledo DO [Primary Care Provider] - 1-2 days
[2022-11-08 18:22] LABS: Appearance,Urine Cloudy (Clear); Bacteria,Urine Many /hpf; Bilirubin,Urine Negative (Negative); Blood,Urine Large (Negative); Color,Urine Yellow; Glucose,Urine (UA) Negative (Negative); Ketones,Urine Negative (Negative); Leukocyte Esterase,Urine Large (Negative); Mucus,Urine Rare /hpf; Nitrite,Urine Negative (Negative); PH, Urine 5.5 (5.0-8.0); Protein,Urine 2+ (Negative); RBC,Urine 73 /hpf (0-5); Squamous Epithelial Cell,Urine 1 /hpf (0-4); Urobilinogen,Urine <2.0 mg/dL (<2.0); WBC,Urine 70 /hpf (0-5)
[2022-11-08 19:20] LABS: Potassium 5.4 mmol/L (3.5-5.1)
[2022-11-08 19:21] LABS: Albumin 4.4 g/dL (3.5-5.0); Calcium 9.5 mg/dL (8.4-10.2); Total Bilirubin 0.7 mg/dL (0.2-1.3); Total Protein 7.1 g/dL (6.3-8.2)
[2022-11-08 19:25] LABS: Basophils % (A) 0 %; Eosinophils % (A) 0 %; HCT 35.9 % (34.0-46.0); HGB 11.5 gm/dL (11.4-16.0); Lymphocytes # (A) 0.9 k/uL (1.0-4.8); Lymphocytes % (A) 6 %; MCV 90.6 fL (80.0-100.0); Mean Platelet Volume 7.4; Monocytes # (A) 0.7 k/uL (0-1.0); Monocytes % (A) 5 %; Neutrophils # (A) 13.2 k/uL (1.3-7.7); Neutrophils % (A) 88 %; Platelet Count 294 k/uL (150-450); RBC 3.96 m/uL (3.80-5.40); RDW 14.6 % (11.5-15.5); WBC 14.9 k/uL (3.8-10.6)
[2022-11-08] MEDS ORDERED: SODIUM CHLORIDE 0.9% 1,000 ML IV STA (20:03)
[2022-11-08] MEDS ORDERED: ONDANSETRON 4 MG/2 ML VIAL IVP STA (20:13)
--- NOTE | 2022-11-08 21:03 | CT ---
EXAMINATION TYPE: CT abdomen pelvis wo con DATE OF EXAM: 11/08/2022 COMPARISON: None INDICATION: pelvic and abdominal pain DLP: 526 mGycm, Automated exposure control for dose reduction was used. CONTRAST: 0 mL of Isovue 300. Study performed without Oral Contrast TECHNIQUE: Axial images were obtained from above the diaphragm to the pubic rami in the axial plane a t 5 mm thick sections. Reconstructed images are reviewed on the computer in the coronal plane. FINDINGS: Limited CT sections are obtained the lung bases. The lung bases are clear. CT ABDOMEN: Liver: Normal Spleen: Normal Pancreas: Normal Adrenal glands: The adrenal glands are normal. Gallbladder: Surgically absent Kidneys: No masses are evident. Mild left hydronephrosis is evident. Perinephric stranding is on the left. Left hydroureter is present. This extends urinary bladder. No obstructing etiology however is e vident. Urinary bladder appears decompressed. There is a 2.3 cm cyst on the mid right kidney. Consid er recent passage of stone Aorta: Vascular calcification is within the aorta. Inferior vena cava: Normal. CT PELVIS: Loops of bowel within the abdomen and pelvis are normal. Diverticulosis without acute diverticulitis is within the sigmoid colon. The study is without oral contrast limiting follow-up evaluation. Appendix: There may have been a prior appendectomy. No dilated tubular structure or inflammatory ortega ges in the right lower quadrant. Urinary bladder: Normal. No bladder calcifications are identified. Genitourinary structures: Uterus and ovaries are not identified. Osseous structures: No suspicious lytic or sclerotic lesions. Degenerative changes are in the lower l umbar spine. IMPRESSIONS: 1. Perinephric stranding around the left kidney may be a decompressed hydronephrosis. Hydroureter re estela present. No obstructing etiology however is identified. Consider recent passage of a renal ston e. 2. Diverticulosis without acute diverticulitis.
[2022-11-08] MEDS ORDERED: KETOROLAC 15 MG/ML 1 ML VIAL IVP PRN (21:30)
[2022-11-08] MEDS ORDERED: ONDANSETRON 4 MG/2 ML VIAL IVP PRN (21:30)
[2022-11-08] MEDS ORDERED: LEVOFLOXACIN 750MG-D5W PMX 750 MG in DEXTROSE/WATER 1 150ML.BAG IVPB STA (21:31)
[2022-11-08] MEDS: SODIUM CHLORIDE 0.9% 1,000 ML IV SCH (21:57)
[2022-11-08] MEDS ORDERED: MORPHINE SULFATE 4 MG/ML SYRINGE IVP PRN (22:39)
[2022-11-08] MEDS ORDERED: AMITRIPTYLINE HCL 10 MG TAB PO PRN (23:00)
[2022-11-08] MEDS: PROCHLORPERAZINE INJ 10 MG/2 ML VIAL IVP SCH (23:03)
[2022-11-09] MEDS: SODIUM CHLORIDE 0.9% 1,000 ML IV SCH ×3 (01:29→17:41)
[2022-11-09 08:01] LABS: Glucose,Whole Blood 210 mg/dL (70-110)
[2022-11-09] MEDS: APIXABAN 5 MG TAB PO SCH ×2 (08:59→20:37)
[2022-11-09] MEDS ORDERED: metFORMIN 500 MG TAB PO SCH (09:00)
[2022-11-09] MEDS: PIOGLITAZONE 15 MG TAB PO SCH (10:27)
[2022-11-09] MEDS: VENLAFAXINE HCL ER 37.5 MG CAP PO SCH (10:27)
[2022-11-09] MEDS: ACETAMINOPHEN TAB 500 MG TAB PO PRN (10:27)
[2022-11-09] MEDS: PROCHLORPERAZINE INJ 10 MG/2 ML VIAL IVP SCH ×3 (10:30→23:14)
[2022-11-09 11:14] LABS: Glucose,Whole Blood 327 mg/dL (70-110)
[2022-11-09] MEDS ORDERED: DEXTROSE 50% SYRINGE 50 ML IVP PRN ×2 (11:51)
[2022-11-09] MEDS: INSULIN ASPART (NovoLOG) 100 UNIT/ML VIAL SQ SCH ×3 (13:14→20:36)
[2022-11-09 16:59] LABS: Glucose,Whole Blood 165 mg/dL (70-110)
[2022-11-09 20:24] LABS: Glucose,Whole Blood 211 mg/dL (70-110)
[2022-11-09] MEDS ORDERED: ATORVASTATIN 40 MG TAB PO SCH (21:00)
--- NOTE | 2022-11-09 23:06 | P.HPIM ---
History of Present Illness H&P Date: 11/09/22 Mckayla Rogers is an 87 yo F with PMH of T2DM, hx kidney stones who presented to the ED on the recommendation of her PCP with acute onset L flank pain. SHe states she woke up this morning with the pain which she descries as sharp and intermittent. She went to see her PCP and was diagnosed with kidney stone and given toradol shot and recommended to present to the ED. She endorses chills and nausea. No fever, sweats. On presentation WBC 14.9k, Cr 1.64, UA with large blood and LE. CT abd/pevlis showing L perinephric stranding. Review of Systems All systems: negative Constitutional: Reports malaise, Denies chills, Denies fever Eyes: denies blurred vision, denies pain Ears, nose, mouth and throat: Denies headache, Denies sore throat Cardiovascular: Denies chest pain, Denies shortness of breath Respiratory: Denies cough Gastrointestinal: Denies abdominal pain, Denies diarrhea, Denies nausea, Denies vomiting Genitourinary: Reports dysuria, Denies hematuria Musculoskeletal: Denies myalgias Integumentary: Denies pruritus, Denies rash Neurological: Denies numbness, Denies weakness Psychiatric: Denies anxiety, Denies depression Endocrine: Denies fatigue, Denies weight change Past Medical History Past Medical History: Diabetes Mellitus, GERD/Reflux, Hyperlipidemia, Hypertension, Osteoarthritis (OA) Additional Past Medical History / Comment(s): HIATAL HERNIA. History of Any Multi-Drug Resistant Organisms: None Reported Past Surgical History: Cholecystectomy, Hysterectomy, Orthopedic Surgery Additional Past Surgical History / Comment(s): YENIFER CATARACTS EXTRACTED; ARTHROSCOPY RT KNEE X1 Past Anesthesia/Blood Transfusion Reactions: No Reported Reaction Past Psychological History: No Psychological Hx Reported Smoking Status: Never smoker Past Alcohol Use History: None Reported Past Drug Use History: None Reported - Past Family History Sister(s) Family Medical History: Cancer Medications and Allergies Home Medications Medication Instructions Recorded Confirmed Type Amitriptyline HCl [Elavil] 10 mg PO HS PRN 12/03/19 11/08/22 History Verapamil HCl [Verapamil ER] 120 mg PO DAILY 12/03/19 11/08/22 History Apixaban [Eliquis] 5 mg PO BID 11/08/22 11/08/22 History Atorvastatin [Lipitor] 40 mg PO HS 11/08/22 11/08/22 History Dulaglutide [Trulicity] 1.5 mg SQ MO 11/08/22 11/08/22 History Pioglitazone [Actos] 15 mg PO DAILY 11/08/22 11/08/22 History Venlafaxine HCl ER [Effexor Xr] 37.5 mg PO DAILY 11/08/22 11/08/22 History metFORMIN HCL ER [Glucophage XR] 500 mg PO BID 11/08/22 11/08/22 History Allergies Allergy/AdvReac Type Severity Reaction Status Date / Time No Known Allergies Allergy Verified 11/08/22 21:14 Physical Exam Vitals: Vital Signs Temp Pulse Pulse Resp BP BP Pulse Ox 11/09/22 20:00 86 16 11/09/22 19:14 98.6 F 86 16 138/68 99 11/09/22 14:00 97.3 F L 84 14 132/54 99 11/09/22 08:00 97.4 F L 90 14 112/57 97 11/09/22 01:18 99.9 F H 125 H 14 174/67 94 L 11/09/22 00:42 68 18 163/66 97 Intake and Output 11/09/22 11/09/22 11/09/22 06:59 14:59 22:59 Intake Total 800 Balance 800 Intake: Oral 800 Other: # Voids 1 4 Weight 65.771 kg Gen: elderly female in NAD HEENT: NC/AT, mmm Neck: supple, no JVD or thyromegaly CV: RRR, no murmur Lungs: CTAB Abd: soft, nontender, non distended Neuro: AAOx3, no focal deficits Skin: warm and dry Results CBC & Chem 7: 11/08/22 18:34 11/08/22 18:34 Labs: Abnormal Lab Results - Last 24 Hours (Table) 11/09/22 11/09/22 11/09/22 Range/Units 08:00 11:11 16:58 POC Glucose (mg/dL) 210 H 327 H 165 H (70-110) mg/dL 11/09/22 Range/Units 20:22 POC Glucose (mg/dL) 211 H (70-110) mg/dL Thrombosis Risk Factor Assmnt - Choose All That Apply Each Risk Factor Represents 3 Points: Age 75 years or older Thrombosis Risk Factor Assessment Total Risk Factor Score: 3 Thrombosis Risk Factor Assessment Level: Moderate Risk Assessment and Plan (1) Pyelonephritis Current Visit: Yes Status: Acute Code(s): N12 - TUBULO-INTERSTITIAL NEPHRITIS, NOT SPCF ACUTE OR CHRONIC SNOMED Code(s): 40590020 (2) Failure of outpatient treatment Current Visit: No Status: Acute Code(s): Z78.9 - OTHER SPECIFIED HEALTH STATUS SNOMED Code(s): 781408378 Plan: Acute pyelonephritis. Pt given loading dose of levaquin in ED. Start rocephin. Follow blood and urine culture DEBORAH. IV fluids at 130 cc/hr T2DM. Accucheck and sliding scale Hx nephrolithiasis
[2022-11-10] MEDS: ACETAMINOPHEN TAB 500 MG TAB PO PRN (00:33)
[2022-11-10] MEDS: SODIUM CHLORIDE 0.9% 1,000 ML IV SCH ×2 (00:34→08:37)
[2022-11-10] MEDS: PROCHLORPERAZINE INJ 10 MG/2 ML VIAL IVP SCH (05:48)
[2022-11-10 07:44] LABS: Glucose,Whole Blood 154 mg/dL (70-110)
[2022-11-10 08:21] VITALS: BP 189/74; PULSE 95; RESP 18; TEMP 98.1
[2022-11-10] MEDS: APIXABAN 5 MG TAB PO SCH (08:36)
[2022-11-10] MEDS: PIOGLITAZONE 15 MG TAB PO SCH (08:36)
[2022-11-10] MEDS: VENLAFAXINE HCL ER 37.5 MG CAP PO SCH (08:36)
[2022-11-10] MEDS: INSULIN ASPART (NovoLOG) 100 UNIT/ML VIAL SQ SCH (08:36)
[2022-11-13] MEDS ORDERED: NON FORMULARY DRUG (Dulaglutide [Trulicity] 1.5 MG/0.5 ML Each) SQ SCH (09:00)
== END 2022-11-10 10:24 | disposition home or self-care (01) | DRG 690 ==
LOC: EC 15:42 → 5NMEDONC 23:09
PROVIDERS: ADMIT Family Medicine; ATTEND Family Medicine
DX: N13.6 Pyonephrosis (principal); N17.9 Acute kidney failure, unspecified; E11.9 Type 2 diabetes mellitus without complications; Z79.4 Long term (current) use of insulin; Z79.899 Other long term (current) drug therapy; E78.5 Hyperlipidemia, unspecified; Z87.19 Personal history of other diseases of the digestive system; M19.90 Unspecified osteoarthritis, unspecified site; K21.9 Gastro-esophageal reflux disease without esophagitis; Z79.01 Long term (current) use of anticoagulants; Z79.84 Long term (current) use of oral hypoglycemic drugs; Z90.710 Acquired absence of both cervix and uterus; Z98.42 Cataract extraction status, left eye; Z98.41 Cataract extraction status, right eye
CPT/HCPCS: 36415; 74176; 80053; 81001; 82565; 83036; 83690; 85025; 96361; 96365; 96375; 99285